=== PATIENT | male | born 1980 | race Caucasian/White ===

== ENCOUNTER 2018-01-11 10:43 | Inpatient (IN) | payer BC ==
[~2018-01-11] VITALS: Ht 188 cm; Wt 117.9 kg
[2018-01-11] MEDS ORDERED: CARVEDILOL6.25 MG ORAL (11:00)
[2018-01-11] MEDS ORDERED: ASPIR 8181 MG ORAL (11:00)
[2018-01-11] MEDS ORDERED: AMLODIPINE BESY10 MG ORAL (11:00)
[2018-01-11] MEDS ORDERED: LOSARTAN POTASS50 MG ORAL (11:00)
[2018-01-11] MEDS: Ertapenem 1 GM in NS 55 ML IVPB ONE ×2 (11:30→11:43)
[2018-01-11] MEDS ORDERED: Ertapenem 1 GM in NS 55 ML IVPB SCH (11:45)
--- NOTE | 2018-01-11 12:03 | Diagnostic Imaging Report ---
Indication: Shortness of breath Technique: One view of the chest Comparison: none Findings: Lungs and pleural spaces are clear. Heart size is normal Impression: No acute process
[2018-01-11 12:07] VITALS: BP 135/77
[2018-01-11 12:08] LABS: APPEARANCE,URINE CLEAR; BILIRUBIN, URINE NEGATIVE (NEGATIVE); GLUCOSE, URINE (UA) NEGATIVE (NEGATIVE); KETONES,URINE NEGATIVE (NEGATIVE); LEUKOCYTE ESTERASE ,URINE 2+ (NEGATIVE); NITRITE,URINE NEGATIVE (NEGATIVE); PH,URINE 6 (4.5-8.0); PROTEIN,URINE NEGATIVE (NEGATIVE); UROBILINOGEN,URINE NORMAL MG/DL (0.0-1.0)
[2018-01-11 12:08] LABS: BASOPHILS % (AUTO) 1.2 % (0.0-2.0); EOSINOPHILS % (AUTO) 5.4 % (0.0-3.0); HEMATOCRIT 49.2 % (42.0-52.0); HEMOGLOBIN 16.8 G/DL (14.2-18.0); LYMPHOCYTES % (AUTO) 27.8 % (20.0-45.0); MEAN CORPUSCULAR VOLUME 85 FL (80-99); NEUTROPHILS % (AUTO) 57.5 % (45.0-75.0); PLATELET COUNT 255 K/UL (150-450); RED BLOOD COUNT 5.79 M/UL (4.70-6.10); RED CELL DISTRIBUTION WIDTH 12.8 % (11.6-14.8); WHITE BLOOD COUNT 7.4 K/UL (4.8-10.8)
[2018-01-11 12:15] LABS: ANION GAP 7 mmol/L (5-15); BLOOD UREA NITROGEN 18 mg/dL (7-18); CALCIUM 9.7 MG/DL (8.5-10.1); CARBON DIOXIDE 29 MMOL/L (21-32); CHLORIDE 108 MMOL/L (98-107); POTASSIUM 4.3 MMOL/L (3.5-5.1); SODIUM 144 MMOL/L (136-145)
[2018-01-11 12:29] LABS: COLOR,URINE YELLOW
[2018-01-11 12:31] LABS: ALANINE AMINOTRANSFERASE 83 U/L (12-78); ALBUMIN 3.8 G/DL (3.4-5.0); ALBUMIN/GLOBULIN RATIO 1.1 (1.0-2.7); ALKALINE PHOSPHATASE 52 U/L (46-116); ASPARTATE AMINO TRANSFERASE 42 U/L (15-37); BILIRUBIN,TOTAL 0.3 MG/DL (0.2-1.0); CKMB 1.4 NG/ML (0.0-3.6); CREATINE KINASE 380 U/L (26-308)
[2018-01-11] MEDS ORDERED: Acetaminophen 500mg (ES) tab ORAL PRN (15:15)
--- NOTE | 2018-01-11 15:51 | Emergency Room Report ---
History of Present Illness General Chief Complaint: General Complaint Source: Patient Present Illness HPI Patient is a 37-year-old male who presented after increased dysuria for several days. Patient was noted to have recent fever. He had been seen at urgent care where they did a culture on him which showed evidence of the multidrug- resistant infection. Patient had previous antibiotics after abscess but denies recent antibiotic use. Patient had been noted to have organism which was resistant to fluoroquinolones as well as Macrobid and Bactrim. The patient's organism was noted to be sensitive to ertapenem as well as meropenem. The patient denies current fever. He had not been vomiting. Allergies: Coded Allergies: PENICILLINS (Verified Allergy, Unknown, Rash, 01/11/18) Patient History Past Medical History: see triage record Reviewed Nursing Documentation: PMH: Agreed; PSxH: Agreed Nursing Documentation-PMH Hx Cardiac Problems: Yes Hx Hypertension: Yes Hx Cancer: No Hx Gastrointestinal Problems: Yes Hx Neurological Problems: No Review of Systems All Other Systems: negative except mentioned in HPI Physical Exam Vital Signs Date Time Temp Pulse Resp B/P (MAP) Pulse Ox O2 Delivery O2 Flow Rate FiO2 01/11/18 10:57 98.1 68 19 163/82 97 Room Air 98.1 Sp02 EP Interpretation: reviewed, normal General Appearance: normal inspection, well appearing, no apparent distress, alert, GCS 15 Head: atraumatic ENT: normal ENT inspection, hearing grossly normal, normal voice Neck: normal inspection, full range of motion, supple, no bony tend Respiratory: normal inspection, lungs clear, normal breath sounds, no respiratory distress, no retraction, no wheezing Cardiovascular #1: regular rate, rhythm, no edema Gastrointestinal: normal inspection, normal bowel sounds, non tender, soft, no guarding, no hernia Genitourinary: no CVA tenderness Musculoskeletal: normal inspection, back normal, normal range of motion Neurologic: normal inspection, alert, responsive, speech normal Psychiatric: normal inspection, judgement/insight normal, mood/affect normal Skin: normal inspection, normal color, no rash Medical Decision Making Diagnostic Impression: Primary Impression: Resistant UTI ER Course Patient presented for dysuria. Differential diagnosis included was not limited to appendicitis, urinary tract infection, pelvic inflammatory disease, urethritis, herpes among others.Because of complexity of patient's case laboratory testing and imaging studies were ordered. The telemetry study showed no normal white blood count. Urinalysis showed continued evidence of urinary infection. I given the patient's failure of outpatient treatment and the multiple drug resistant organism patient be admitted to the hospital for further IV antibiotics. Dr. Dave Tarango was contacted for inpatient management. Labs Test 01/11/18 11:25 01/11/18 11:45 White Blood Count 7.4 K/UL (4.8-10.8) Red Blood Count 5.79 M/UL (4.70-6.10) Hemoglobin 16.8 G/DL (14.2-18.0) Hematocrit 49.2 % (42.0-52.0) Mean Corpuscular Volume 85 FL (80-99) Mean Corpuscular Hemoglobin 29.0 PG (27.0-31.0) Mean Corpuscular Hemoglobin Concent 34.2 G/DL (32.0-36.0) Red Cell Distribution Width 12.8 % (11.6-14.8) Platelet Count 255 K/UL (150-450) Mean Platelet Volume 6.8 FL (6.5-10.1) Neutrophils (%) (Auto) 57.5 % (45.0-75.0) Lymphocytes (%) (Auto) 27.8 % (20.0-45.0) Monocytes (%) (Auto) 8.0 % (1.0-10.0) Eosinophils (%) (Auto) 5.4 % (0.0-3.0) Basophils (%) (Auto) 1.2 % (0.0-2.0) Sodium Level 144 MMOL/L (136-145) Potassium Level 4.3 MMOL/L (3.5-5.1) Chloride Level 108 MMOL/L (98-107) Carbon Dioxide Level 29 MMOL/L (21-32) Anion Gap 7 mmol/L (5-15) Blood Urea Nitrogen 18 mg/dL (7-18) Creatinine 1.0 MG/DL (0.55-1.30) Estimat Glomerular Filtration Rate > 60 mL/min (>60) Glucose Level 108 MG/DL (74-106) Lactic Acid Level 1.60 mmol/L (0.66-2.22) Calcium Level 9.7 MG/DL (8.5-10.1) Total Bilirubin 0.3 MG/DL (0.2-1.0) Aspartate Amino Transf (AST/SGOT) 42 U/L (15-37) Alanine Aminotransferase (ALT/SGPT) 83 U/L (12-78) Alkaline Phosphatase 52 U/L (46-116) Total Creatine Kinase 380 U/L (26-308) Creatine Kinase MB 1.4 NG/ML (0.0-3.6) Creatine Kinase MB Relative Index 0.3 Troponin I 0.003 ng/mL (0.000-0.056) Total Protein 7.4 G/DL (6.4-8.2) Albumin 3.8 G/DL (3.4-5.0) Globulin 3.6 g/dL Albumin/Globulin Ratio 1.1 (1.0-2.7) Urine Color Yellow Urine Appearance Clear Urine pH 6 (4.5-8.0) Urine Specific [place] 1.020 (1.005-1.035) Urine Protein Negative (NEGATIVE) Urine Glucose (UA) Negative (NEGATIVE) Urine Ketones Negative (NEGATIVE) Urine Occult Blood 1+ (NEGATIVE) Urine Nitrite Negative (NEGATIVE) Urine Bilirubin Negative (NEGATIVE) Urine Urobilinogen Normal MG/DL (0.0-1.0) Urine Leukocyte Esterase 2+ (NEGATIVE) Urine RBC 0-2 /HPF (0 - 0) Urine WBC 15-20 /HPF (0 - 0) Urine Squamous Epithelial Cells Occasional /LPF Urine Bacteria Moderate /HPF (NONE) Last Vital Signs Date Time Temp Pulse Resp B/P (MAP) Pulse Ox O2 Delivery O2 Flow Rate FiO2 01/11/18 13:44 63 18 138/82 98 Room Air 01/11/18 10:57 98.1 98.1 Status: unchanged Disposition: ADMITTED INPATIENT Condition: Stable Referrals: NON PHYSICIAN (PCP) Robby Yost MD January 11, 2018 15:51
[2018-01-11 16:00] VITALS: BP 133/81
[2018-01-11 20:00] VITALS: BP 137/84
[2018-01-11] MEDS: Losartan 50mg tab ORAL SCH (21:11)
[2018-01-11] MEDS: Carvedilol 6.25mg Tab ORAL SCH (21:12)
[2018-01-11] MEDS: Meropenem 500 MG in NS 55 ML IVPB SCH (21:13)
[2018-01-12] VITALS: BP 137/86
[2018-01-12 04:00] VITALS: BP 140/90
[2018-01-12] MEDS: Meropenem 500 MG in NS 55 ML IVPB SCH ×2 (06:02→13:38)
[2018-01-12 08:00] VITALS: BP 141/77
[2018-01-12] MEDS: Losartan 50mg tab ORAL SCH (08:25)
[2018-01-12] MEDS: Carvedilol 6.25mg Tab ORAL SCH (08:26)
[2018-01-12] MEDS ORDERED: Aspirin EC 81mg tab ORAL SCH (09:00)
[2018-01-12 12:00] VITALS: BP 154/82
[2018-01-12 16:12] VITALS: BP 160/79
--- NOTE | 2018-01-12 16:46 | Cardiology Report ---
APPROVED REPORT EKG Measurement Heart [id number] Normal sinus rhythm Nonspecific ST and T wave abnormality Abnormal ECG
[2018-01-12] MEDS ORDERED: Tubing IV Secondary IV ONE (17:17)
[2018-01-12] MEDS ORDERED: NS 500ML ONE (17:17)
--- NOTE | 2018-01-12 23:45 | Consultation ---
DATE OF CONSULTATION: 01/12/2018 INFECTIOUS DISEASE CONSULTATION CONSULTING PHYSICIAN: Antoine Robison M.D. PRIMARY ATTENDING PHYSICIAN: Dave Tarango M.D. REASON FOR CONSULT: Urinary tract infection. HISTORY OF PRESENT ILLNESS: This is a 37-year-old male, admitted yesterday. The patient says that at this time he feels weak and has seen multiple doctors, has some dysuria and suprapubic pain. The urine culture in outside facility had come positive for E. coli ESBL. PAST MEDICAL HISTORY: History of hernia repair, history of tonsillectomy, and history of giardiasis. MEDICATION: Getting amlodipine, aspirin, carvedilol, meropenem, losartan, and Tylenol. ALLERGIES: Allergic to penicillin. SOCIAL HISTORY: . Homosexual. Denies alcohol or drug abuse. 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 He has history of steroid abuse. REVIEW OF SYSTEMS: No fever. No chills. No nausea. No vomiting. No diarrhea. Mild suprapubic pain that is improving. PHYSICAL EXAMINATION: VITAL SIGNS: Temperature 98.2, pulse 66, and blood pressure 154/82. GENERAL APPEARANCE: No acute distress. HEAD AND NECK: No oral lesion. HEART: S1 and S2 regular. LUNGS: Clear. ABDOMEN: Soft and nontender. EXTREMITIES: He has no edema. LABORATORY DATA: Urine culture, gram negative bacilli, urine wbc of 15 to 20, leukocyte esterase 2+. Sodium 144, potassium 4.3, chloride 108, and bicarb 29. AST 42, ALT 83, and alkaline phosphatase 380. Chest x-ray was negative. IMPRESSION: 1. Complicated urinary tract infection with Escherichia coli extended spectrum beta-lactamases. 2. Elevated transaminase. 3. Anabolic steroid abuse. 4. Hypertension. 5. Penicillin allergy, but was not allergic to meropenem. RECOMMENDATION: 1. He can be discharged to home with p.o. fosfomycin. 2. We will follow up the cultures. At the end of my exam, I thank Dr. Tarango for involving me in the care of this patient. Antoine Robison M.D. DR: EDU JOB#: [id number] CC:
--- NOTE | 2018-01-13 13:00 | Discharge Summary ---
Discharge Summary Discharge Summary _ DATE OF ADMISSION: 01/11/2018 DATE OF DISCHARGE: 01/12/2018 CONSULTANTS: Dr. Antoine Robison BRIEF HOSPITAL COURSE: Patient is a 37-year-old male, with history of hernia repair, tonsillectomy, and history of giardiasis presented to ED after increased dysuria for several days. He was noted to have fever. He was seen at an urgent care where culture showed evidence of multiresistant infection. He then presented to ED. On evaluation at ED, vitals were stable. Blood work showed WBC 7.4. Urinalysis with 2+ leukocyte esterase, 15-20 WBC, 0-2 RBC. He was admitted for evaluation of resistant UTI. He was seen by infectious disease specialist. Urine culture was growing gram-negative bacillus. He was given meropenem. Urine culture showed growth of ESBL Escherichia coli. He was cleared for discharge home to continue p.o. fosfomycin. He was eventually cleared for discharge home to follow up with PCP. FINAL DIAGNOSES: Complicated urinary tract infection with Escherichia coli ESBL Elevated transaminase Anabolic steroid abuse Hypertension Penicillin allergy but not allergic to meropenem DISPOSITION: Patient was discharged home. DISCHARGE MEDICATIONS: Refer to Discharge Medication List. DISCHARGE INSTRUCTIONS: Follow up with PCP in a week. I have been assigned to dictate discharge summary on this account, and I was not involved in the patient's management. Ada Saha NP January 13, 2018 13:00
--- NOTE | 2018-01-13 13:45 | History and Physical Report ---
DATE OF ADMISSION: 01/11/2018 HISTORY OF PRESENT ILLNESS: with urinary symptoms, fever of 101 hernia. PAST SURGICAL HISTORY: Hernia repair. ALLERGIES: Penicillin. FAMILY HISTORY: Noncontributory. SOCIAL HISTORY: PHYSICAL EXAMINATION: VITAL SIGNS: pulse 70, blood pressure was 130/70. HEENT: PERRLA. NECK: Supple. CHEST: Clear to auscultation. GASTROINTESTINAL: Soft, nontender, nondistended. No organomegaly. EXTREMITIES: No edema. ASSESSMENT AND PLAN: antibiotics as per Dr. Robison as well as Dr. Becerra consulted for the dehydration. Otherwise per Dr. Antoine Robison, Infectious disease doctor. Dave Tarango M.D. DR: Laith JOB#: [id number] CC:
== END 2018-01-12 17:18 | disposition home or self-care (01) | DRG 690 ==
LOC: EMR 11:46 → 4E 12:12 → EDBEDREQ 12:34 → 4E 01-12 11:08
DX: N39.0 Urinary tract infection, site not specified (principal); B96.20 Unspecified Escherichia coli [E. coli] as the cause of diseases classified elsewhere; Z16.12 Extended spectrum beta lactamase (ESBL) resistance; R74.0 Nonspecific elevation of levels of transaminase and lactic acid dehydrogenase [LDH]; F55.3 Abuse of steroids or hormones; I10 Essential (primary) hypertension; Z88.0 Allergy status to penicillin
CPT/HCPCS: 36415; 71045; 80053; 81003; 82550; 82553; 83605; 84484; 85025; 87040; 87086; 87181; 93005; 99285